=== PATIENT | male | born 2000 | race Caucasian/White ===

== ENCOUNTER 2021-03-10 12:20 | Emergency (ER) | payer OTHER, SELFPAY ==
--- NOTE | ~2021-03-10 | CT_ITS ---
EXAMINATION: CT ABDOMEN AND PELVIS WITH CONTRAST CLINICAL INFORMATION: Epigastric and right upper quadrant pain COMPARISON: None TECHNIQUE: Multidetector volumetric images were obtained from the superior aspect of the liver through the pubic symphysis following administration 85 mL of Omnipaque 350 intravenous contrast. Sagittal and coronal reformatted images were obtained on the technologist's workstation. Oral contrast: No This CT examination was performed using dose optimization techniques as appropriate, variously including the following: *Automated exposure control *Adjustment of mA and/or kV according to patient size (this includes techniques or standardized protocols for targeted exams where dose is matched to indication/reason for exam; i.e. extremities or head) *Use of iterative reconstruction technique DLP: 427 mGy-cm FINDINGS: LUNG BASES: Lung bases appear unremarkable without acute parenchymal disease or nodule. No pleural or pericardial effusion. LIVER, GALLBLADDER, AND BILIARY TREE: The liver is normal in size, shape, and attenuation. No focal hepatic lesion or biliary ductal dilatation is present. The gallbladder is unremarkable with no evidence of radiopaque gallstones, gallbladder wall thickening, or obvious pericholecystic inflammatory changes. PANCREAS: Unremarkable. No evidence of acute pancreatitis. SPLEEN: Unremarkable. ADRENAL GLANDS: Unremarkable. KIDNEYS AND URETERS: The kidneys are normal in size, shape, and attenuation. There is fullness of the right upper collecting system with the appearance of either parapelvic cysts or some degree of ureteral pelvic junction obstruction with no dilatation of the right ureter identified and no definite ureteral calculi seen. There are some pelvic calcifications present however they do not appear to lie within the ureters. No perinephric stranding. BLADDER: Unremarkable. GASTROINTESTINAL TRACT: No dilated loops of large or small bowel are evident. No free air or free fluid. No evidence of acute diverticulitis. Appendix appears unremarkable. No pericolonic inflammatory change. ABDOMINAL WALL: No significant hernia is appreciated. LYMPH NODES: There are prominent inguinal lymph nodes seen bilaterally. VASCULAR: Unremarkable. PELVIC VISCERA: Unremarkable. OSSEOUS STRUCTURES: Unremarkable. CT/CT abdomen pelvis w con IMPRESSION: No evidence of acute pancreatitis or acute cholecystitis. No perigastric inflammatory change appreciated. No evidence of acute appendicitis. Fullness of the right upper collecting system with question of parapelvic cyst versus some degree of ureteral pelvic junction obstruction.
[2021-03-10 12:36] VITALS: BP 127/76; PULSE 58; RESP 16; TEMP 36.6; O2SAT 98; BMI 26.6
--- NOTE | 2021-03-10 14:41 | ECG_ITS ---
Test Reason : ABDOMINAL PAIN Blood Pressure : / mmHG Vent. Rate : 056 BPM Atrial Rate : 056 BPM P-R Int : 122 ms QRS Dur : 090 ms QT Int : 370 ms P-R-T Axes : 058 065 038 degrees QTc Int : 357 ms Sinus bradycardia Otherwise normal ECG No previous ECGs available Referred By: Alfie Bean Electronically Signed By:LANDEN KENDALL
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
[2021-03-10 14:55] LABS: MANUAL DIFF FLAG NO
[2021-03-10 14:56] LABS: Basophils Percent Auto 0.3 % (0-2); Eosinophils Absolute Auto 0.2 X10*3/uL (0.0-0.4); Eosinophils Percent Auto 1.5 % (0-4); Hematocrit 45.7 % (42-52); Hemoglobin 15.5 g/dl (14.0-18.0); Imm Gran Abs Auto 0.03 X10*3/uL (0.00-0.03); Imm Gran Pct Auto 0.3 % (0.0-0.4); Lymphocytes Absolute Auto 2.3 X10*3/uL (1.2-4.9); Lymphocytes Percent Auto 23.4 % (20-40); Mean Corpuscular HGB Conc 33.9 g/dl (31.0-36.0); Mean Corpuscular Hemoglobin 29.5 pg (27.0-33.0); Mean Platelet Volume 11.2 fL (9.4-12.4); Monocytes Absolute Auto 0.8 X10*3/uL (0.1-1.2); Monocytes Percent Auto 8.3 % (2-11); Neutrophils Absolute Auto 6.5 X10*3/uL (2.0-8.3); Neutrophils Percent Auto 66.2 % (45-73); Platelet Count 246 X10*3/uL (160-400); Red Blood Count 5.25 X10*6/uL (4.60-5.80); Red Cell Distribution Width 12.3 % (11.0-16.0); White Blood Count 9.8 X10*3/uL (4.8-10.8)
[2021-03-10 15:10] LABS: Alanine Aminotransferase 17 U/L (0-40); Albumin Level 4.3 g/dL (3.5-5.0); Alkaline Phosphatase 79 U/L (39-117); Anion Gap 12 (12-20); Aspartate Amino Transferase 18 U/L (5-37); Bilirubin Direct 0.2 mg/dL (0.0-0.5); Bilirubin Total 0.3 mg/dL (0.0-1.0); Blood Urea Nitrogen 9 mg/dL (9-16); Calcium 9.8 mg/dL (8.4-10.2); Carbon Dioxide 27 mmol/L (22-29); Chloride 106 mmol/L (96-108); Creatinine Clr Calc Pharmacy 120.6; Estimated Glomerular Filt Rate > 60; Glucose Random 108 mg/dL (60-115); Lipase 32 U/L (8-78); Potassium 4.5 mmol/L (3.3-5.1); Sodium 140 mmol/L (135-145); Total Protein 6.6 g/dL (6.5-8.0)
[2021-03-10] MEDS: Morphine Sulfate 4 MG/ML CARTRIDGE IVPUSH (15:11)
[2021-03-10] MEDS: ondansetron HCL 4 MG/2 ML VIAL IVPUSH (15:12)
[2021-03-10] MEDS: Famotidine/PF 20 MG/2 ML VIAL IVPUSH (15:15)
[2021-03-10] MEDS: Lactated Ringers 1,000 ML 999 ML IV ×2 (15:21→16:24)
[2021-03-10] MEDS: iohexoL 350 MG/ML 100 ML INFUS..BTL IV (15:42)
[2021-03-10] MEDS: Ketorolac Tromethamine 15 MG/ML VIAL IVPUSH (15:54)
[2021-03-10] MEDS: diphenhydrAMINE HCL 50 MG/ML VIAL 25 MG IVPUSH (15:55)
== END 2021-03-10 17:53 | disposition home or self-care (01) ==
PROVIDERS: Emergency Provider Student in an Organized Health Care Education/Training Program; PCP Family Medicine
DX: E86.0 Dehydration (principal); R11.2 Nausea with vomiting, unspecified; R10.13 Epigastric pain; Z79.899 Other long term (current) drug therapy
CPT/HCPCS: 36415; 74177; 80048; 80076; 83690; 85025; 86850; 86900; 86901; 93005; 96361; 96374; 96375; 99284; J1200; J1790; J1885; J2270; J2405; Q9967